=== PATIENT | male | born 1990 | race African-American/Black ===

== ENCOUNTER 2018-01-25 06:38 | Emergency (ER) | payer SELFPAY | END 2018-01-25 07:16 | disposition home or self-care (01) | LOC: ER 07:16 | DX: K02.9 Dental caries, unspecified (principal); F12.10 Cannabis abuse, uncomplicated; Z87.19 Personal history of other diseases of the digestive system | CPT/HCPCS: 99283 ==

== ENCOUNTER 2020-01-13 18:08 | Emergency (ER) | payer SELFPAY ==
[~2020-01-13] VITALS: Ht 172.7 cm; Wt 110.0 kg
[~2020-01-13 18:08] MED LIST: AMOX500C PO; HYDR-3164 PO; IBUP-1060 PO
[2020-01-13 18:10] VITALS: BP 169/111
[2020-01-13] MEDS ORDERED: ASPIRIN 325 MG TABLET PO ONE (18:30)
[2020-01-13 18:34] LABS: BASO # 0.1 x10^3/uL (0.0-0.2); BASO % 1 % (0-3); EOS # 0.2 x10^3/uL (0.0-0.7); EOS % 2 % (0-3); HEMATOCRIT 39.8 % (39.0-53.0); HEMOGLOBIN 13.2 g/dL (13.0-17.5); LYMPH # 2.4 x10^3/uL (1.0-4.8); LYMPH % 32 % (24-48); MEAN CORPUSCULAR HEMOGLOBIN 25 pg (25-35); MEAN CORPUSCULAR HGB CONC 33 g/dL (31-37); MEAN CORPUSCULAR VOLUME 77 fL (79-100); MONO # 0.5 x10^3/uL (0.0-1.1); MONO % 6 % (0-9); NEUT # 4.5 x10^3/uL (1.8-7.7); NEUT % 59 % (31-73); PLATELET COUNT 259 x10^3/uL (140-400); RED CELL DISTRIBUTION WIDTH 14.7 % (11.5-14.5); WHITE BLOOD COUNT 7.7 x10^3/uL (4.0-11.0)
--- NOTE | 2020-01-13 18:37 | PHYS DOC ---
Past Medical History Past Medical History: Other Additional Past Medical Histor: stomach ulcers (SUHAS ESCOBAR APRN) Past Surgical History: No Surgical History, Other Additional Past Surgical Histo: EGD (SUHAS ESCOBAR APRN) Smoking Status: Current Every Day Smoker Alcohol Use: None Drug Use: Marijuana (SUHAS ESCOBAR APRN) Attending Signature I have participated in the care of this patient and I have reviewed and agree with all pertinent clinical information above including history, exam, and recommendations. (JEFF KOLB MD) Adult General Chief Complaint Chief Complaint: CHEST PAIN HPI HPI Patient is a 29 year old male who presents with Left sided Chest pain that started tonight around 1730. Patient states he was slightly soa at the time. Hestates that the pain is non radiating and has lessened. He rates his pain at a 5/10. (SUHAS ESCOBAR APRN) Review of Systems Review of Systems Cardiovascular: Left sharp chest pain All other systems were reviewed and found to be within normal limits, except as documented in this note. (SUHAS ESCOBAR APRN) Current Medications Current Medications Current Medications Medications (Trade) Dose Ordered Sig/Scarlet Start Time Stop Time Status Last Admin Dose Admin Aspirin ([place] Aspirin) 325 mg 1X ONCE 01/13/20 18:30 01/13/20 18:31 DC 01/13/20 19:13 325 MG Fentanyl Citrate (Fentanyl 2ml Vial) 50 mcg 1X ONCE 01/13/20 19:00 01/13/20 19:01 DC 01/13/20 19:16 50 MCG Sodium Chloride 1,000 ml @ 1,000 mls/hr 1X ONCE 01/13/20 19:00 01/13/20 19:59 DC 01/13/20 19:00 1,000 MLS/HR (JEFF KOLB MD) Allergies Allergies Allergies Coded Allergies Type Severity Reaction Last Updated Verified No Known Drug Allergies 02/15/14 No (JEFF KOLB MD) Physical Exam Physical Exam Constitutional: Well developed, well nourished, no acute distress, non-toxic appearance. [] HENT: Normocephalic, atraumatic, bilateral external ears normal, oropharynx moist, no oral exudates, nose normal. [] Eyes: PERRLA, EOMI, conjunctiva normal, no discharge. [] Neck: Normal range of motion, no tenderness, supple, no stridor. [] Cardiovascular:Heart rate regular rhythm, no murmur [] Lungs & Thorax: Bilateral breath sounds clear to auscultation [] Abdomen: Bowel sounds normal, soft, no tenderness, no masses, no pulsatile masses. [] Skin: Warm, dry, no erythema, no rash. [] Back: No tenderness, no CVA tenderness. [] Extremities: No tenderness, no cyanosis, no clubbing, ROM intact, no edema. [] Neurologic: Alert and oriented X 3, normal motor function, normal sensory function, no focal deficits noted. [] Psychologic: Affect normal, judgement normal, mood normal. Normal Physical Exam[] (SUHAS ESCOBAR APRN) Current Patient Data Vital Signs Vital Signs Date Time Temp Pulse Resp B/P (MAP) Pulse Ox O2 Delivery O2 Flow Rate FiO2 01/13/20 19:16 18 96 Room Air 01/13/20 18:10 98.4 81 169/111 (130) 98.4 (JEFF KOLB MD) Lab Values Laboratory Tests Test 01/13/20 18:25 01/13/20 20:35 White Blood Count 7.7 x10^3/uL (4.0-11.0) Red Blood Count 5.20 x10^6/uL (4.30-5.70) Hemoglobin 13.2 g/dL (13.0-17.5) Hematocrit 39.8 % (39.0-53.0) Mean Corpuscular Volume 77 fL (79-100) L Mean Corpuscular Hemoglobin 25 pg (25-35) Mean Corpuscular Hemoglobin Concent 33 g/dL (31-37) Red Cell Distribution Width 14.7 % (11.5-14.5) H Platelet Count 259 x10^3/uL (140-400) Neutrophils (%) (Auto) 59 % (31-73) Lymphocytes (%) (Auto) 32 % (24-48) Monocytes (%) (Auto) 6 % (0-9) Eosinophils (%) (Auto) 2 % (0-3) Basophils (%) (Auto) 1 % (0-3) Neutrophils # (Auto) 4.5 x10^3/uL (1.8-7.7) Lymphocytes # (Auto) 2.4 x10^3/uL (1.0-4.8) Monocytes # (Auto) 0.5 x10^3/uL (0.0-1.1) Eosinophils # (Auto) 0.2 x10^3/uL (0.0-0.7) Basophils # (Auto) 0.1 x10^3/uL (0.0-0.2) Prothrombin Time 11.6 SEC (11.7-14.0) L Prothrombin Time INR 0.9 (0.8-1.1) Sodium Level 137 mmol/L (136-145) Potassium Level 3.9 mmol/L (3.5-5.1) Chloride Level 101 mmol/L (98-107) Carbon Dioxide Level 27 mmol/L (21-32) Anion Gap 9 (6-14) Blood Urea Nitrogen 13 mg/dL (8-26) Creatinine 1.2 mg/dL (0.7-1.3) Estimated GFR (Cockcroft-Gault) 85.4 BUN/Creatinine Ratio 11 (6-20) Glucose Level 99 mg/dL (70-99) Calcium Level 8.8 mg/dL (8.5-10.1) Total Bilirubin 0.2 mg/dL (0.2-1.0) Aspartate Amino Transferase (AST) 22 U/L (15-37) Alanine Aminotransferase (ALT) 27 U/L (16-63) Alkaline Phosphatase 65 U/L (46-116) Troponin I Quantitative < 0.017 ng/mL (0.000-0.055) Total Protein 7.8 g/dL (6.4-8.2) Albumin 3.8 g/dL (3.4-5.0) Albumin/Globulin Ratio 1.0 (1.0-1.7) Lipase 98 U/L (73-393) Urine Collection Type Unknown Urine Color Straw Urine Clarity Clear Urine pH 6.0 Urine Specific [place] <=1.005 Urine Protein Negative mg/dL (NEG-TRACE) Urine Glucose (UA) Negative mg/dL (NEG) Urine Ketones (Stick) Negative mg/dL (NEG) Urine Blood Negative (NEG) Urine Nitrite Negative (NEG) Urine Bilirubin Negative (NEG) Urine Urobilinogen Dipstick 0.2 mg/dL (0.2 mg/dL) Urine Leukocyte Esterase Negative (NEG) Urine RBC 0 /HPF (0-2) Urine WBC 0 /HPF (0-4) Urine Squamous Epithelial Cells Few /LPF Urine Bacteria 0 /HPF (0-FEW) Urine Opiates Screen Neg (NEG) Urine Methadone Screen Neg (NEG) Urine Barbiturates Neg (NEG) Urine Phencyclidine Screen Neg (NEG) Urine Amphetamine/Methamphetamine Neg (NEG) Urine Benzodiazepines Screen Neg (NEG) Urine Cocaine Screen Neg (NEG) Urine Cannabinoids Screen Neg (NEG) Urine Ethyl Alcohol Neg (NEG) Laboratory Tests 01/13/20 18:25 Laboratory Tests 01/13/20 18:25 (JEFF KOLB MD) Lab Values Laboratory Tests Test 01/13/20 18:25 01/13/20 20:35 White Blood Count 7.7 x10^3/uL (4.0-11.0) Red Blood Count 5.20 x10^6/uL (4.30-5.70) Hemoglobin 13.2 g/dL (13.0-17.5) Hematocrit 39.8 % (39.0-53.0) Mean Corpuscular Volume 77 fL (79-100) L Mean Corpuscular Hemoglobin 25 pg (25-35) Mean Corpuscular Hemoglobin Concent 33 g/dL (31-37) Red Cell Distribution Width 14.7 % (11.5-14.5) H Platelet Count 259 x10^3/uL (140-400) Neutrophils (%) (Auto) 59 % (31-73) Lymphocytes (%) (Auto) 32 % (24-48) Monocytes (%) (Auto) 6 % (0-9) Eosinophils (%) (Auto) 2 % (0-3) Basophils (%) (Auto) 1 % (0-3) Neutrophils # (Auto) 4.5 x10^3/uL (1.8-7.7) Lymphocytes # (Auto) 2.4 x10^3/uL (1.0-4.8) Monocytes # (Auto) 0.5 x10^3/uL (0.0-1.1) Eosinophils # (Auto) 0.2 x10^3/uL (0.0-0.7) Basophils # (Auto) 0.1 x10^3/uL (0.0-0.2) Prothrombin Time 11.6 SEC (11.7-14.0) L Prothrombin Time INR 0.9 (0.8-1.1) Sodium Level 137 mmol/L (136-145) Potassium Level 3.9 mmol/L (3.5-5.1) Chloride Level 101 mmol/L (98-107) Carbon Dioxide Level 27 mmol/L (21-32) Anion Gap 9 (6-14) Blood Urea Nitrogen 13 mg/dL (8-26) Creatinine 1.2 mg/dL (0.7-1.3) Estimated GFR (Cockcroft-Gault) 85.4 BUN/Creatinine Ratio 11 (6-20) Glucose Level 99 mg/dL (70-99) Calcium Level 8.8 mg/dL (8.5-10.1) Total Bilirubin 0.2 mg/dL (0.2-1.0) Aspartate Amino Transferase (AST) 22 U/L (15-37) Alanine Aminotransferase (ALT) 27 U/L (16-63) Alkaline Phosphatase 65 U/L (46-116) Troponin I Quantitative < 0.017 ng/mL (0.000-0.055) Total Protein 7.8 g/dL (6.4-8.2) Albumin 3.8 g/dL (3.4-5.0) Albumin/Globulin Ratio 1.0 (1.0-1.7) Lipase 98 U/L (73-393) Urine Collection Type Unknown Urine Color Straw Urine Clarity Clear Urine pH 6.0 Urine Specific [place] <=1.005 Urine Protein Negative mg/dL (NEG-TRACE) Urine Glucose (UA) Negative mg/dL (NEG) Urine Ketones (Stick) Negative mg/dL (NEG) Urine Blood Negative (NEG) Urine Nitrite Negative (NEG) Urine Bilirubin Negative (NEG) Urine Urobilinogen Dipstick 0.2 mg/dL (0.2 mg/dL) Urine Leukocyte Esterase Negative (NEG) Urine RBC 0 /HPF (0-2) Urine WBC 0 /HPF (0-4) Urine Squamous Epithelial Cells Few /LPF Urine Bacteria 0 /HPF (0-FEW) Urine Opiates Screen Neg (NEG) Urine Methadone Screen Neg (NEG) Urine Barbiturates Neg (NEG) Urine Phencyclidine Screen Neg (NEG) Urine Amphetamine/Methamphetamine Neg (NEG) Urine Benzodiazepines Screen Neg (NEG) Urine Cocaine Screen Neg (NEG) Urine Cannabinoids Screen Neg (NEG) Urine Ethyl Alcohol Neg (NEG) Laboratory Tests 01/13/20 18:25 Laboratory Tests 01/13/20 18:25 (SUHAS ESCOBAR APRN) EKG EKG NSR[] Interpretation Time: [address] Kolb (SUHAS ESCOBAR APRN) Radiology/Procedures Radiology/Procedures [] (SUHAS ESCOBAR APRN) Impressions: [facility] [address] [place] [address] IMAGING REPORT Signed PATIENT: RAVINDER JORGENSEN CACCOUNT: [id number] : 1990 LOCATION: ER AGE: 29 SEX: M EXAM STATUS: REG ER ORD. PHYSICIAN: SUHAS ESCOBAR APRN REASON: chest pain PROCEDURE: CHEST PA & LATERAL EXAM: CHEST PA LATERAL INDICATION: chest pain . TECHNIQUE: PA and lateral views COMPARISON: 02/15/14 FINDINGS: The heart size is normal. The great vessels appear unremarkable. There is no hilar or mediastinal mass. The lungs are clear. There is no pleural effusion or pneumothorax. There are no significant osseous abnormalities. IMPRESSION: No active cardiopulmonary disease. Electronically signed by: Gnee Barragan MD (01/13/2020 7:11 PM) [facility] DICTATED and SIGNED BY: GENE BARRAGAN MD DATE: 01/13/201910 (SUHAS ESCOBAR APRN) Course & Med Decision Making Course & Med Decision Making Pertinent Labs and Imaging studies reviewed. (See chart for details) Alert and oriented. Speaks in full clear sentences. Skin pink warm and dry. Ambulatory with steady gait. Lungs are clear to auscultation in all lobes. EKG NSR. States nothing makes the chest pain worse or better. Non reproducible with deep breath or palpation. No extremity edema. PERC negative. Blood work unremarkable. Chest xray shows no acute findings. Heart score 1. Patient can follow with cardiology if needed. Patient is stable and with no pain at this time. [] (SUHAS ESCOBAR APRN) Dragon Disclaimer Dragon Disclaimer This electronic medical record was generated, in whole or in part, using a voice recognition dictation system. (SUHAS ESCOBAR APRN) The HEART Score for CP Pts HEART Score for Chest Pain: HEART Score for Chest Pain Response (Comments) Value History Slighlty/Non-Suspicious 0 ECG Normal 0 Age < 45 0 Risk Factors 1 or 2 Risk Factors 1 Troponin < Normal Limit 0 Total 1 Risk Factors: Risk Factors: DM, Current or recent (<one month) smoker, HTN, HLP, family history of CAD, obesity. Risk Scores: Score 0 - 3: 2.5% MACE over next 6 weeks - Discharge Home Score 4 - 6: 20.3% MACE over next 6 weeks - Admit for Clinical Observation Score 7 - 10: 72.7% MACE over next 6 weeks - Early Invasive Strategies (SUHAS ESCOBAR APRN) Departure Departure Impression: Primary Impression: Acute nonspecific chest pain with low risk of coronary artery disease Disposition: HOME, SELF-CARE Condition: STABLE Referrals: MARION TALLEY MD (PCP) ALLYSON CHUA MD Patient Instructions: Chest Pain (Nonspecific), [id number] Additional Instructions: Follow up with primary care provider. Follow up with cardiology also if chest pain reappear. SUHAS ESCOBAR APRN Jan 13, 2020 18:37 JEFF KOLB MD Jan 14, 2020 00:15
[2020-01-13 18:42] LABS: CALCIUM 8.8 mg/dL (8.5-10.1); CREATININE 1.2 mg/dL (0.7-1.3); GFR 85.4; POTASSIUM 3.9 mmol/L (3.5-5.1)
[2020-01-13 18:46] LABS: PROTHROMBIN TIME PATIENT 11.6 SEC (11.7-14.0)
[2020-01-13 18:48] LABS: ALBUMIN 3.8 g/dL (3.4-5.0); TOTAL BILIRUBIN 0.2 mg/dL (0.2-1.0); TOTAL PROTEIN 7.8 g/dL (6.4-8.2)
[2020-01-13] MEDS ORDERED: fentaNYL PF VIAL 100 MCG/2 ML VIAL IVP ONE (19:00)
[2020-01-13] MEDS ORDERED: IV NORMAL SALINE 1000ML BAG 1,000 ML IV ONE (19:00)
--- NOTE | 2020-01-13 19:14 | RAD ---
EXAM: CHEST PA LATERAL INDICATION: chest pain . TECHNIQUE: PA and lateral views COMPARISON: 02/15/14 FINDINGS: The heart size is normal. The great vessels appear unremarkable. There is no hilar or mediastinal mass. The lungs are clear. There is no pleural effusion or pneumothorax. There are no significant osseous abnormalities. IMPRESSION: No active cardiopulmonary disease. Electronically signed by: Kyree Barragan MD (01/13/2020 7:11 PM) [facility]
[2020-01-13 20:49] LABS: BILIRUBIN,URINE NEGATIVE (NEG); CLARITY,URINE CLEAR; NITRITE,URINE NEGATIVE (NEG); PROTEIN,URINE NEGATIVE (NEG-TRACE); UROBILINOGEN,URINE 0.2 mg/dL (0.2 mg/dL)
[2020-01-13 20:54] LABS: COLOR,URINE STRAW
[2020-01-13 20:55] LABS: AMPHETAMINE/METHAMPHETAMINE NEG (NEG); BARBITURATES NEG (NEG); BENZODIAZEPINES NEG (NEG); CANNABINOIDS NEG (NEG); COCAINE NEG (NEG); METHADONE NEG (NEG); OPIATES NEG (NEG); PHENCYCLIDINE NEG (NEG)
[2020-01-13 20:56] LABS: BACTERIA,URINE 0 /HPF (0-FEW); RBC,URINE 0 /HPF (0-2); SQUAMOUS EPITHELIAL CELL,UR FEW /LPF; WBC,URINE 0 /HPF (0-4)
--- NOTE | 2020-01-14 06:10 | EKG ---
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
== END 2020-01-13 21:35 | disposition home or self-care (01) ==
LOC: ER 18:08
DX: R07.89 Other chest pain (principal); R06.02 Shortness of breath; F17.200 Nicotine dependence, unspecified, uncomplicated
CPT/HCPCS: 36415; 71046; 80053; 80307; 81001; 83690; 84484; 85025; 85610; 93005; 96374; 99285; J3010; J7030

== ENCOUNTER 2021-02-03 20:38 | Emergency (ER) | payer SELFPAY ==
[~2021-02-03] VITALS: Ht 172.7 cm; Wt 97.7 kg
[2021-02-03 20:40] VITALS: BP 162/109
[2021-02-03] MEDS ORDERED: MUPI22OI2 TP (21:21)
[2021-02-03] MEDS ORDERED: CEPH500C PO (21:21)
--- NOTE | 2021-02-03 21:30 | ED.ADGEN ---
Past Medical History Past Medical History: Other Additional Past Medical Histor: stomach ulcers Past Surgical History: No Surgical History, Other Additional Past Surgical Histo: EGD Smoking Status: Current Every Day Smoker Alcohol Use: None Drug Use: Marijuana General Adult EDM: Chief Complaint: SKIN RASH/ABSCESS HPI: HPI: Patient is a 30 year old AA male who presents emergency department with complaints of dry itchy skin to his hands, behind his knees, and to his bilateral inner thighs for several days. Patient reports that the rash on his hand has developed a yellow coating on it and has become very painful. He denies any fever, cough, new detergents, new medications, or new environmental exposures. He denies any cough, shortness of breath, chest pain, abdominal pain, nausea, vomiting, or diarrhea. He denies any abnormal lesions on his penis or abnormal penile discharge. He currently rates his pain 8 out of 10 on pain scale, he denies any alleviating or exacerbating factors. Review of Systems: Review of Systems: Complete ROS is negative unless otherwise noted in HPI. Allergies: Allergies: Allergies Coded Allergies Type Severity Reaction Last Updated Verified No Known Drug Allergies 02/15/14 No Physical Exam: PE: See Above Constitutional: Well developed, well nourished, no acute distress, non-toxic appearance. [] HENT: Normocephalic, atraumatic, bilateral external ears normal, nose normal. [] Eyes: PERRLA, EOMI, conjunctiva normal, no discharge. [] Neck: Normal range of motion, no stridor. [] Cardiovascular:Heart rate regular rhythm Lungs & Thorax: Respirations even and unlabored, no retractions, no respiratory distress Skin: Warm, dry; patches of dry, scaly skin noted behind bilateral knees, to bilateral thighs, buttocks, and to bilateral hands, consistent with atopic dermatitis. There are some honey crusted lesions between the fingers concerning for impetigo. Extremities: No cyanosis, ROM intact, no edema. [] Neurologic: Alert and oriented X 3, no focal deficits noted. [] Psychologic: Affect normal, judgement normal, mood normal. [] EKG: EKG: [] Heart Score: C/O Chest Pain: No Risk Factors: Risk Factors: DM, Current or recent (<one month) smoker, HTN, HLP, family history of CAD, obesity. Risk Scores: Score 0 - 3: 2.5% MACE over next 6 weeks - Discharge Home Score 4 - 6: 20.3% MACE over next 6 weeks - Admit for Clinical Observation Score 7 - 10: 72.7% MACE over next 6 weeks - Early Invasive Strategies Radiology/Procedures: Radiology/Procedures: [] Course & Med Decision Making: Course & Med Decision Making Pertinent Labs and Imaging studies reviewed. (See chart for details) [] Dragon Disclaimer: Dragon Disclaimer: This electronic medical record was generated, in whole or in part, using a voice recognition dictation system. Departure Departure Impression: Primary Impression: Atopic dermatitis Additional Impression: Impetigo Disposition: 01 DC HOME SELF CARE/HOMELESS Condition: STABLE Referrals: NO PCP (PCP) Patient Instructions: Eczema, Impetigo Additional Instructions: Fill the prescription(s) and use as directed. Keep fingernails trimmed short. Apply antibiotic ointment under fingernails as instructed. Follow up with your primary care doctor next week for recheck, return to the ER if symptoms worsen or fever develops. [facility] [address] [place] [address] [facility] [address] [place] [address] [facility] [address] [place] [address] [facility] [address] [place] [address] [facility] [address] [place] [address] [facility] [address] [place] [address] [facility] [address] [place] [address] [facility] [address] [place] [address] [facility] [address] [place] [address] [facility] [address] [place] [address] Scripts Cephalexin (CEPHALEXIN) 500 Mg Capsule 1 CAP PO QID for 7 Days, #28 CAP 0 Refills Prov: FARHAN ANTONIO APRN 02/03/21 Mupirocin (MUPIROCIN OINTMENT) 22 Gm Oint...g. 1 SHADI TP TID for WOUND CARE for 7 Days, #1 TUBE 0 Refills Prov: FARHAN ANTONIO APRN 02/03/21 Problem Qualifiers Primary Impression: Atopic dermatitis Atopic dermatitis type: flexural Qualified Codes: L20.89 - Other atopic dermatitis FARHAN ANTONIO MESH MAN Feb 03, 2021 21:30
== END 2021-02-03 21:31 | disposition home or self-care (01) ==
LOC: ER 20:38
DX: L20.9 Atopic dermatitis, unspecified (principal); L01.00 Impetigo, unspecified; F17.200 Nicotine dependence, unspecified, uncomplicated
CPT/HCPCS: 99283

== ENCOUNTER 2021-03-02 21:37 | Emergency (ER) | payer SELFPAY ==
[~2021-03-02] VITALS: Ht 172.7 cm; Wt 100.0 kg
[~2021-03-02 21:37] MED LIST changes: +CEPH500C PO; +MUPI22OI2 TP
--- NOTE | 2021-03-02 21:46 | PHYS DOC ---
Past Medical History Past Medical History: Other Additional Past Medical Histor: stomach ulcers Past Surgical History: No Surgical History, Other Additional Past Surgical Histo: EGD Smoking Status: Current Every Day Smoker Alcohol Use: None Drug Use: Marijuana General Adult EDM: Chief Complaint: CHEST PAIN HPI: HPI: 30 yo M past medical history of peptic ulcer disease, gastritis and substance abuse (h/o lean and thc), presents the ED with complaints of gradual onset left- sided, nonradiating " targeted like a knot in my chest with pressure," that started a few hours prior to arrival patient was eating crab legs. Patient states he has had these left-sided intermittent chest pain episodes for the past 2 months with palpitations described as " off rhythm and flutters." States deep breathing and coughing worsens the pain. Reports pain is very mild right now. Came to the ED tonight because chest pain is occurring more frequently he cannot get into see his primary care physician Dr. Naik until the . Denies any history of cocaine or methamphetamine abuse. States he took 20 mg of oxycodone from a friend earlier this morning. Does admit to vaping but no recent use in the past 24 hours. Reports 2 years ago he was told he was having a heart failure and might need a pacemaker at [facility]. No personal or family history of AAA, AAD, CTD (ehlos danlos or marfans), cardiac arrhythmias (need for AICD), CAD, sudden or unexplainable (under 50 years of age or with exertion), or clotting disorders. Patient takes no routine medications and was told he might need medications for hypertension. Denies any associated neurologic deficits or syncope. Patient reports he does not sleep much at night but this has been going on for years. Denies any blunt chest wall injury or heavy lifting. No history of Covid. EMR reviewed-no echocardiogram performed. Review of Systems: Review of Systems: Constitutional: Denies fever or chills. [] Eyes: Denies change in visual acuity. [] HENT: Denies nasal congestion or sore throat. [] Respiratory: Denies cough or shortness of breath or increased work of breathing Cardiovascular: Denies syncope, hemoptysis or edema GI: Denies abdominal pain, nausea, vomiting, bloody stools or diarrhea. [] : Denies dysuria or hematuria Musculoskeletal: Denies back pain or joint pain. [] Integument: Denies rash or diaphoresis Neurologic: Denies headache, neck pain, focal weakness or sensory changes. [] Endocrine: Denies polyuria or polydipsia. [] Lymphatic: Denies swollen glands. [] Psychiatric: Denies depression or anxiety. [] Heart Score: C/O Chest Pain: Yes HEART Score for Chest Pain: HEART Score for Chest Pain Response (Comments) Value History Slighlty/Non-Suspicious 0 ECG Nonspecific Repolarizatio 1 Age < 45 0 Risk Factors 1 or 2 Risk Factors 1 Troponin < Normal Limit 0 Total 2 Risk Factors: Risk Factors: DM, Current or recent (<one month) smoker, HTN, HLP, family history of CAD, obesity. Risk Scores: Score 0 - 3: 2.5% MACE over next 6 weeks - Discharge Home Score 4 - 6: 20.3% MACE over next 6 weeks - Admit for Clinical Observation Score 7 - 10: 72.7% MACE over next 6 weeks - Early Invasive Strategies Allergies: Allergies: Allergies Coded Allergies Type Severity Reaction Last Updated Verified No Known Drug Allergies 02/15/14 No Physical Exam: PE: Constitutional: Well developed, well nourished, no acute distress, non-toxic appearance. HENT: Normocephalic, atraumatic, Eyes: EOMI, conjunctiva normal, no discharge. Neck: Normal range of motion, supple, Cardiovascular: S1/2 present, regular rhythm, left chest wall tenderness to palpation with no mass or lesions palpated-location is left parasternal T3-5 region over costal cartilages Lungs & Thorax: Speaking in full sentences, bilateral equal chest rise, no tachy pnea or increased work of breathing Abdomen: soft, no tenderness, Skin: Warm, dry, no erythema, no rash. [] Back: No tenderness, no CVA tenderness. [] Extremities: No tenderness, no cyanosis, no lower extremity edema Neurologic: Alert and oriented X 3, normal motor function, normal sensory function, no focal deficits noted. [] Psychologic: Affect normal, judgement normal, mood normal. [] EKG: EKG: Sinus rhythm 81 bpm, no axis deviation, prolonged QTC 447, T wave inversion V1 through V3, no ST elevations or ST depressions, possible U waves on EKG Radiology/Procedures: Radiology/Procedures: IMAGING REPORT Signed PATIENT: RAVINDER JORGENSEN CACCOUNT: [id number] : 1990 LOCATION: ER AGE: 30 SEX: M EXAM STATUS: REG ER ORD. PHYSICIAN: LARRY AKINS DO REASON: cp PROCEDURE: PORTABLE CHEST 1V Exam: Chest one view INDICATION: Chest pain TECHNIQUE: Frontal view of the chest Comparisons: 01/13/2020 FINDINGS: The cardiomediastinal silhouette and pulmonary vessels are within normal limits. The lung and pleural spaces are clear. IMPRESSION: No acute cardiopulmonary process. Electronically signed by: Richi Cruz MD (03/02/2021 10:07 PM) [facility] DICTATED and SIGNED BY: RICHI CRUZ MD DATE: 03/02/[id number] 0 Impression: PERC rule for pulmonary embolus 0 criteria No need for further workup, as <2% chance of PE. If no criteria are positive and clinicians pre-test probability is <15%, PERC Rule criteria are satisfied. Course & Med Decision Making: Course & Med Decision Making Pertinent Labs and Imaging studies reviewed. (See chart for details) Concern for atypical chest pain for the past 2 months that has been intermittent, no associated syncope, diaphoresis, nausea, vomiting, neck or left arm pain or neurologic deficits. SPECT palpitations versus PAC/PVC versus anxiety related, low suspicion for life-threatening etiologies. Labs with nonspecific elevated liver enzymes-refer to PCP for outpatient work-up and pasquale luation. Drug screen positive for opioids and marijuana. Troponin negative. D- dimer within normal limits. CXR viewed by myself with no mediastinum, no acute abnormalities. Patient does have mild hypertension with no endorgan damage, will refer to PCP within 1 week to have this evaluated. Patient calm, resting and in no distress. Recommend [id number] analgesia. Will discharge home with strict ED return precautions were given for neurologic deficits, syncope, sudden onset chest pain, dyspnea, nausea or vomiting. Encouraged urgent outpatient follow-up with PMD and cardiology for nonemergent outpatient evaluation. Life-threatening processes were considered but are low suspicion at this time, given history, physical exam and ED workup. Pt was educated on all prescription medications and adverse effects. All patient's questions were answered and pt was stable at time of discharge. Life/limb-threatening differential includes but is not limited to, acute myocardial infarction, aortic dissection, congestive heart failure, esophageal injury including rupture, surgical abdomen, arrhythmia, cardiomyopathy, myocarditis, pericarditis, peptic ulcer disease, pneumomediastinum, pneumonia, pneumothorax, pulmonary embolus, unstable angina, rib fracture, contusion, pericardial tamponade or effusion, traumatic injury including mediastinal hemorrhage or hematoma, or pulmonary contusion. I spoken with the patient and her caregivers. I explained the patient's condition, diagnoses and treatment plan based on the information available to me at this time. I have answered the patient and her caregiver's questions and addressed any concerns. The patient and her caregivers have a good understanding of patient's diagnosis, condition and treatment plan as can be expected at this point. Vital signs have been stable. Patient's condition is stable and appropriate for discharge from the emergency department. Patient will pursue further outpatient evaluation with primary care physician or other designated or consulting physician as outlined in the discharge instructions. The patient and/or caregivers are agreeable to this plan of care and follow-up instructions have been explained in detail. The patient and/or caregivers have received these instructions in written form and have expressed an understanding of the discharge instructions. The patient and/or caregivers are aware that any significant change of condition or worsening of symptoms should prompt immediate return to this or the closest emergency department or call to 911. Valentino Disclaimer: Valentino Disclaimer: This electronic medical record was generated, in whole or in part, using a voice recognition dictation system. Departure Departure Impression: Primary Impression: Atypical chest pain Additional Impression: Elevated liver enzymes Disposition: 01 DC HOME SELF CARE/HOMELESS Condition: STABLE Referrals: NO PCP (PCP) Follow-up w/pcp in 3-5 days for blood pressure and LFT testing FOLLOW UP WITH FAMILY MEDICINE: Family Medicine Address: [address] [place] [address] Phone: [phone] Patient Instructions: Chest Pain (Nonspecific), Chest Wall Pain Additional Instructions: FOLLOW UP WITH CARDIOLOGY: For nonemergent outpatient evaluation [facility] Address: [address] [place] [address] EMERGENCY DEPARTMENT GENERAL DISCHARGE INSTRUCTIONS Thank you for coming to [facility] Emergency Department (ED) today and trusting us with you care. We trust that you had a positive experience in our Emergency Department. If you wish to speak to the department management, you may call the Director at [phone]. YOUR FOLLOW UP INSTRUCTIONS ARE FOLLOWS: 1. Do you have a private Doctor? If you do not have a private doctor, please ask for a resource list of physicians or clinics that may be able to assist you with follow up care. 2. The Emergency Physicain has interpreted your x-rays. The X-Ray specialist will also review them. If there is a change in the findings, you will be notified in 48 hours when at all possible. 3. A lab test or culture has been done, your results will be reviewed and you will be notified if you need a change in treatment. ADDITIONAL INSTRUCTIONS AND INFORMATION: 1. Your care today has been supervised by a physician who is specially trained in emergency care. Many problems require more than one evaluation for a complete diagnosis and treatment. We recommend that you schedule your follow up appointment as recommended to ensure complete treatment of you illness or injury. If you are unable to obtain follow up care and continue to have a problem, or if your condition worsens, we recommend that you return to the ED. 2. We are not able to safely determine your condition over the phone nor are we able to give sound medical advice over the phone. For these safety reasons, if you call for medical advice we will ask you to come to the ED for further evaluation. 3. If you have any questions regarding these discharge instructions please call the ED at [phone]. SAFETY INFORMATION: In the interest of safety, wellness, and injury prevention; we encourage you to wear your sealbelt, if you smoke; quite smoking, and we encourage family to use a protective helmet for bicycling and other sporting events that present an increased risk for head injury. IF YOUR SYMPTOMS WORSEN OR NEW SYMPTOMS DEVELOP, OR YOU HAVE CONCERNS ABOUT YOUR CONDITION; OR IF YOUR CONDITION WORSENS WHILE YOU ARE WAITING FOR YOUR FOLLOW UP APPOINTMENT; EITHER CONTACT YOUR PRIMARY CARE DOCTOR, THE PHYSICIAN WHOSE NAME AND NUMBER YOU WERE GIVEN, OR RETURN TO THE ED IMMEDIATELY. LARRY MUNOZ DO Mar 02, 2021 21:46
[2021-03-02 21:59] LABS: BASO # 0.1 x10^3/uL (0.0-0.2); BASO % 1 % (0-3); EOS # 0.3 x10^3/uL (0.0-0.7); EOS % 4 % (0-3); HEMATOCRIT 36.9 % (39.0-53.0); HEMOGLOBIN 12.4 g/dL (13.0-17.5); LYMPH # 2.9 x10^3/uL (1.0-4.8); LYMPH % 38 % (24-48); MEAN CORPUSCULAR HEMOGLOBIN 25 pg (25-35); MEAN CORPUSCULAR HGB CONC 34 g/dL (31-37); MEAN CORPUSCULAR VOLUME 76 fL (79-100); MONO # 0.5 x10^3/uL (0.0-1.1); MONO % 7 % (0-9); NEUT # 3.9 x10^3/uL (1.8-7.7); NEUT % 51 % (31-73); PLATELET COUNT 226 x10^3/uL (140-400); RED BLOOD COUNT 4.88 x10^6/uL (4.30-5.70); RED CELL DISTRIBUTION WIDTH 14.7 % (11.5-14.5); WHITE BLOOD COUNT 7.7 x10^3/uL (4.0-11.0)
--- NOTE | 2021-03-02 22:09 | RAD ---
Exam: Chest one view INDICATION: Chest pain TECHNIQUE: Frontal view of the chest Comparisons: 01/13/2020 FINDINGS: The cardiomediastinal silhouette and pulmonary vessels are within normal limits. The lung and pleural spaces are clear. IMPRESSION: No acute cardiopulmonary process. Electronically signed by: Richi Marion MD (03/02/2021 10:07 PM) MARIA A
[2021-03-02 22:11] LABS: CALCIUM 8.8 mg/dL (8.5-10.1); GFR 104.8; POTASSIUM 3.4 mmol/L (3.5-5.1)
[2021-03-02 22:14] LABS: ALBUMIN 3.7 g/dL (3.4-5.0); ALBUMIN/GLOBULIN RATIO 0.9 (1.0-1.7); MAGNESIUM 1.8 mg/dL (1.8-2.4); TOTAL BILIRUBIN 0.2 mg/dL (0.2-1.0); TOTAL PROTEIN 7.8 g/dL (6.4-8.2)
--- NOTE | 2021-03-02 22:18 | EKG ---
[facility] [address] [place] [address] Test Date: 2021-03-02 Test Time: 21:41:10 Pat Name: RAVINDER JORGENSEN Department: Room: Gender: M Production Line: : 1990 Requested By: LARRY AKINS Order Number: [id number] Reading MD: Measurements Intervals [employer] Rate: 81 P: 54 IA: 178 QRS: 64 QRSD: 100 T: 48 QT: 384 QTc: 447 Interpretive Statements SINUS RHYTHM NO SPECIFIC ECG ABNORMALITIES RI6.01 No previous ECG available for comparison
[2021-03-02 22:27] LABS: BARBITURATES NEG (NEG); BENZODIAZEPINES NEG (NEG); CANNABINOIDS POS (NEG); COCAINE NEG (NEG); METHADONE NEG (NEG); OPIATES POS (NEG); PHENCYCLIDINE NEG (NEG)
[2021-03-02 22:28] LABS: AMPHETAMINE/METHAMPHETAMINE NEG (NEG)
[2021-03-02 23:28] VITALS: BP 140/69
== END 2021-03-02 23:34 | disposition home or self-care (01) ==
LOC: ER 21:37
DX: R07.89 Other chest pain (principal); R79.89 Other specified abnormal findings of blood chemistry; R00.2 Palpitations; F17.200 Nicotine dependence, unspecified, uncomplicated; F12.90 Cannabis use, unspecified, uncomplicated; Z98.890 Other specified postprocedural states
CPT/HCPCS: 36415; 71045; 80053; 80307; 83690; 83735; 84484; 85025; 85379; 93005; 99285

== ENCOUNTER 2022-02-06 22:24 | Emergency (ER) | payer SELFPAY | END 2022-02-07 00:29 | disposition left against medical advice (07) | LOC: ER 22:24 | DX: R21 Rash and other nonspecific skin eruption (principal); Z53.21 Procedure and treatment not carried out due to patient leaving prior to being seen by health care provider ==

== ENCOUNTER 2022-02-19 21:10 | Emergency (ER) | payer SELFPAY ==
[~2022-02-19] VITALS: Ht 172.7 cm; Wt 123.3 kg
[2022-02-19 22:25] VITALS: BP 152/98
[2022-02-19] MEDS ORDERED: DOXY100T PO (22:51)
--- NOTE | 2022-02-19 22:51 | PHYS DOC ---
Past Medical History Past Medical History: Hypertension, Other Additional Past Medical Histor: stomach ulcers Past Surgical History: No Surgical History, Other Additional Past Surgical Histo: EGD Smoking Status: Current Every Day Smoker Alcohol Use: None Drug Use: Marijuana General Adult EDM: Chief Complaint: SKIN PROBLEM HPI: HPI: Patient is a 31-year-old male who presents to the emergency department for penile pain after intercourse that started 2 weeks ago. Patient reports that after he has intercourse that he feels irritation to his penis. He reports itching and urethral discharge. He reports that his sexual partner got tested for STIs a week ago and was told she had a "bacterial infection". Patient denies dysuria, fevers,, vomiting Review of Systems: Review of Systems: Constitutional: See HPI GI: See HPI : See HPI Integument: See HPI Heart Score: C/O Chest Pain: N/A Risk Factors: Risk Factors: DM, Current or recent (<one month) smoker, HTN, HLP, family history of CAD, obesity. Risk Scores: Score 0 - 3: 2.5% MACE over next 6 weeks - Discharge Home Score 4 - 6: 20.3% MACE over next 6 weeks - Admit for Clinical Observation Score 7 - 10: 72.7% MACE over next 6 weeks - Early Invasive Strategies Allergies: Allergies: Allergies Coded Allergies Type Severity Reaction Last Updated Verified No Known Drug Allergies 02/15/14 No Physical Exam: PE: Constitutional: Well developed, well nourished, no acute distress, non-toxic appearance. [] HENT: Normocephalic, atraumatic, bilateral external ears normal, oropharynx moist, no oral exudates, nose normal. [] Eyes: PERRL, EOMI, conjunctiva normal, no discharge. [] Neck: Normal range of motion, no stridor Cardiovascular normal peripheral perfusion Lungs & Thorax: Normal work of breathing, no tachypnea : No urethral discharge noted, no rash, no redness, no vesicles or other lesions noted, no testicular swelling, no penile swelling Abdomen: Soft and flat Skin: Warm, dry, no erythema, no rash. [] Back: No tenderness, normal range of motion Extremities: No tenderness, no cyanosis, no clubbing, ROM intact, no edema. [] Neurologic: Alert and oriented X 3, normal motor function, normal sensory fu nction, no focal deficits noted. [] Psychologic: Affect normal, judgement normal, mood normal. [] Current Patient Data: Labs: Laboratory Tests Test 02/19/22 22:46 Urine Collection Type Void Urine Color (Auto) Light yellow Urine Turbidity Clear Urine pH (Auto) 6.0 Urine Specific Carbon 1.015 Urine Protein (Auto) Negative mg/dL Urine Glucose (Auto)(UA) Negative mg/dL Urine Ketones (Auto) Negative mg/dL Urine Blood (Auto) Negative Urine Nitrite Negative Urine Bilirubin (Auto) Negative Urine Urobilinogen (Auto) Normal mg/dL Urine Leukocyte Esterase (Auto) Negative Urine RBC Rare /HPF Urine WBC 0 /HPF Urine Squamous Epithelial Cells Mod /LPF Urine Bacteria 0 /HPF Current Medications Medications (Trade) Dose Ordered Sig/Scarlet Route PRN Reason Start Time Stop Time Status Last Admin Dose Admin Doxycycline Hyclate (Vibra-Tab) 100 mg 1X ONCE PO 02/19/22 23:00 02/19/22 23:01 DC 02/19/22 22:59 Ceftriaxone Sodium (Rocephin Im) 500 mg 1X ONCE IM 02/19/22 23:00 02/19/22 23:01 DC 02/19/22 22:59 Vital Signs: Vital Signs Date Time Temp Pulse Resp B/P (MAP) Pulse Ox O2 Delivery O2 Flow Rate FiO2 02/19/22 22:25 97.7 89 18 152/98 (116) 96 Room Air 97.7 EKG: EKG: [] Radiology/Procedures: Radiology/Procedures: [] Course & Med Decision Making: Course & Med Decision Making pertinent Labs and Imaging studies reviewed. (See chart for details) [] Patient presents to the emergency department for penile itching, irritation and urethral discharge. Patient will be tested for gonorrhea, chlamydia, trichomonas and will have a urinalysis performed. Urinalysis was negative.. Patient would like to be prophylactically treated for STIs and this was ordered. Patient will be notified via telephone of his results when they become available in approximately 1 to 2 days. He is advised to avoid sexual intercourse until he receives his results. He is advised to notify sexual partners if he is positive. I discussed with patient all findings and diagnostic testing as well as the need to follow-up with PCP for further evaluation and treatment or return to the ER if any new or worsening symptoms. Strict return precautions were also discussed at length. Patient voiced understanding and agreement with the plan. Patient is hemodynamically stable at the time of disposition. Dragon Disclaimer: Dragon Disclaimer: This electronic medical record was generated, in whole or in part, using a voice recognition dictation system. Departure Departure Impression: Primary Impression: Encounter for screening for infections with a predominantly sexual mode of transmission Disposition: HOME / SELF CARE / HOMELESS Condition: GOOD Referrals: NO PCP (PCP) Patient Instructions: Sexually Transmitted Disease Additional Instructions: You were seen in the emergency department for penile irritation. Your urinalysis did not show a urinary tract infection. We tested you for gonorrhea and chlamydia in the emergency department and you will be notified via telephone of your results when they become available in approximately 10-14 days. Please avoid sexual intercourse until you receive these results. You are being prophylactically treated for these infections. You received a shot of an antibiotic in the emergency department and you will be discharged home with an antibiotic. Please make sure that you start and finish the antibiotic completely. If you are positive for any STIs please notify your sexual partners. Return to the emergency department if you develop abdominal pain, back pain, intractable nausea or vomiting, high fevers refractory to treatment or any new or worsening concerns. Scripts Doxycycline Hyclate (DOXYCYCLINE HYCLATE) 100 Mg Tablet 1 TAB PO BID for 7 Days, #14 TAB 0 Refills Prov: JULY STREETER APRN 02/19/22 JULY STREETER APRN Feb 19, 2022 22:51
[2022-02-19] MEDS: DOXYCYCLINE HYCLATE 100 MG TABLET PO ONE (22:59)
[2022-02-19] MEDS: cefTRIAXone IM 500 MG VIAL. IM ONE (22:59)
[2022-02-19 23:07] LABS: BACTERIA,URINE 0 /HPF (0-FEW); RBC,URINE RARE /HPF (0-2); WBC,URINE 0 /HPF (0-4)
== END 2022-02-19 23:39 | disposition home or self-care (01) ==
LOC: ER 21:10
DX: N48.89 Other specified disorders of penis (principal); R36.9 Urethral discharge, unspecified; I10 Essential (primary) hypertension; F17.200 Nicotine dependence, unspecified, uncomplicated
CPT/HCPCS: 81001; 87491; 87591; 96372; 99283; J0696